=== PATIENT | male | born 1945 | race Caucasian/White ===

== ENCOUNTER → 2018-02-24 | Outpatient (CLI) | payer BC, OTHER ==
[~2018-02-24] MED LIST: ARIPIPRAZOLE10 MG PO; ASPIR 8181 MG PO; ATIVAN1 MG PO; CARBIDOPA-LEVO1 EAC6 PO; CARVEDILOL3.125 MG PO; DURAGESIC1 EAC2 TRANSDERM; KEFLEX500 M1 PO; LANTUS100 UNIT/M SUBQ; LASIX 40 MG TAB40 M2 PO; LISINOPRIL2.5 MG PO; MELATONIN3 MG PO; NOVOLOG100 UNIT/1 SUBQ; ONDANSETRON ODT4 MG PO; OXYCODONE HCL5 MG PO; PLAVIX 75 MG TA75 M1 PO; POTASSIUM20 PO; PROZAC10 MG PO; RANEXA500 MG PO; REQUIP 0.25 M0.25 M1 PO; SIMVASTATIN40 MG PO; TRAZODONE HCL100 MG PO
[2018-02-24 13:18] VITALS: BP 156/81
== END ==
LOC: SEN 13:06
DX: Z51.5 Encounter for palliative care (principal); I25.10 Atherosclerotic heart disease of native coronary artery without angina pectoris; E11.9 Type 2 diabetes mellitus without complications; F32.9 Major depressive disorder, single episode, unspecified